=== PATIENT | male | born 1955 | race Caucasian/White ===

== ENCOUNTER 2017-06-10 20:30 | Emergency (ER) | payer MEDICAID, OTHER ==
[~2017-06-10] VITALS: Ht 167.6 cm; Wt 77.1 kg
[~2017-06-10 20:30] MED LIST: NKM; UNOBMED; no home meds
[2017-06-10 20:35] VITALS: BP 113/72
[2017-06-10] MEDS ORDERED: Thiamine HCl 100 MG in D5W 55 ML IVPB SCH (21:00)
--- NOTE | 2017-06-10 21:02 | Emergency Room Report ---
History of Present Illness General Chief Complaint: Alcohol Intoxication Source: Patient, EMS Present Illness HPI The patient is brought in for alcohol ingestion. He was brought in from the streets by EMS. He denies any pain, cough, nausea, vomiting, diarrhea, fever. He's not suicidal. He drinks daily. Denies seizures, DTs, ulcers, head trauma. Denies use of other drugs. In 2012 he was admitted with possible ischemic stroke (because he was still not ambulatory after 6 hours). MRI and CT showed L fronto-parietal encephalomalacia c/w prior stroke. He was discharged after swallow eval. The patient does not have weakness or numbness. A repeat CT 10/2015 showed the same area of encephalomalacia. Allergies: Coded Allergies: No Known Allergies (Unverified , 06/11/13) Patient History Past Medical History: see triage record, CVA/TIA - L frontoparietal Social History: Reports: alcohol use Social History Narrative from streets Reviewed Nursing Documentation: PMH: Agreed, PSxH: Agreed Nursing Documentation-PMH Past Medical History: No History, Except For Hx Neurological Problems: No Hx Seizures: Yes - ETOH Review of Systems All Other Systems: negative except mentioned in HPI Physical Exam Vital Signs Date Time Temp Pulse Resp B/P (MAP) Pulse Ox O2 Delivery O2 Flow Rate FiO2 06/10/17 20:30 97.5 89 14 113/72 98 Room Air Sp02 EP Interpretation: reviewed, normal General Appearance: other - dishevelled, alcohol on breath Head: normocephalic, atraumatic Eyes: bilateral eye PERRL, bilateral eye Scleral Injection ENT: moist mucus membranes Neck: supple Respiratory: lungs clear, normal breath sounds Cardiovascular #1: regular rate, rhythm Cardiovascular #2: 2+ radial (R) Gastrointestinal: normal inspection, normal bowel sounds, non tender, no mass, non-distended Musculoskeletal: back normal, gait/station normal, normal range of motion Neurologic: alert, oriented x3, motor strength/tone normal, DTRs symmetric, sensory intact, other - ataxia and slurred Psychiatric: no suicidal/homicidal ideation Skin: warm/dry, other - sun changes, dirt Medical Decision Making Diagnostic Impression: Primary Impression: Acute alcoholic intoxication Qualified Codes: F10.929 - Alcohol use, unspecified with intoxication, unspecified ER Course Patient presents with alcohol ingestion. Differential includes electrolyte abnormality, alcohol ingestion, depression, impending withdrawal. No evidence of head trauma and non-focal neurologic exam. No imaging indicated. No cough or dyspnea. Will run labs, tx with IV hydration and give dose of thiamine. Labs remarkable for elevated BA. Patient improved with observation. Ambulates with steady gait and denies SI. Patient stable for outpatient observation and treatment. Labs Test 06/10/17 21:45 White Blood Count 9.3 K/UL (4.8-10.8) Red Blood Count 4.47 M/UL (4.70-6.10) Hemoglobin 14.9 G/DL (14.2-18.0) Hematocrit 43.8 % (42.0-52.0) Mean Corpuscular Volume 98 FL (80-99) Mean Corpuscular Hemoglobin 33.3 PG (27.0-31.0) Mean Corpuscular Hemoglobin Concent 33.9 G/DL (32.0-36.0) Red Cell Distribution Width 12.6 % (11.6-14.8) Platelet Count 227 K/UL (150-450) Mean Platelet Volume 6.8 FL (6.5-10.1) Neutrophils (%) (Auto) 66.7 % (45.0-75.0) Lymphocytes (%) (Auto) 22.6 % (20.0-45.0) Monocytes (%) (Auto) 9.0 % (1.0-10.0) Eosinophils (%) (Auto) 1.2 % (0.0-3.0) Basophils (%) (Auto) 0.5 % (0.0-2.0) Sodium Level 149 mEQ/L (135-145) Potassium Level 4.0 mEQ/L (3.4-4.9) Chloride Level 110 mEQ/L (98-107) Carbon Dioxide Level 25 mEQ/L (20-30) Anion Gap 14 (5-15) Blood Urea Nitrogen 9 mg/dL (7-23) Creatinine 0.8 mg/dL (0.7-1.2) Estimat Glomerular Filtration Rate > 60 mL/min (>60) Glucose Level 92 mg/dL (74-106) Calcium Level 9.0 mg/dL (8.6-10.2) Total Bilirubin < 0.2 mg/dL (0.0-1.2) Aspartate Amino Transf (AST/SGOT) 38 U/L (5-40) Alanine Aminotransferase (ALT/SGPT) 23 U/L (3-41) Alkaline Phosphatase 61 U/L (40-129) Total Creatine Kinase 100 U/L (38-174) Total Protein 7.3 g/dL (6.6-8.7) Albumin 4.1 g/dL (3.5-5.2) Globulin 3.2 g/dL Albumin/Globulin Ratio 1.2 (1.0-2.7) Salicylates Level < 1 mg/dL (10-30) Acetaminophen Level < 10 ug/mL (10-30) Serum Alcohol 315 mg/dL EKG Diagnostic Results Rate: normal Rhythm: NSR ST Segments: no acute changes Rhythm Strip Diag. Results EP Interpretation: yes Rhythm: NSR, no PVC's, no ectopy Last Vital Signs Date Time Temp Pulse Resp B/P (MAP) Pulse Ox O2 Delivery O2 Flow Rate FiO2 06/11/17 06:32 98.0 91 19 139/81 95 Room Air Status: improved Disposition: HOME, SELF-CARE Condition: Improved Aleksandr Espinal M.D. Jun 10, 2017 21:02
[2017-06-10] MEDS ORDERED: Thiamine HCl 100mg/ml 2 ml Inj ONE (21:58)
[2017-06-10 22:35] VITALS: BP 128/80
[2017-06-10 22:39] LABS: BASOPHILS % (AUTO) 0.5 % (0.0-2.0); EOSINOPHILS % (AUTO) 1.2 % (0.0-3.0); LYMPHOCYTES % (AUTO) 22.6 % (20.0-45.0); MEAN CORPUSCULAR HEMOGLOBIN 33.3 PG (27.0-31.0); MEAN CORPUSCULAR HGB CONC 33.9 G/DL (32.0-36.0); MEAN CORPUSCULAR VOLUME 98 FL (80-99); MEAN PLATELET VOLUME 6.8 FL (6.5-10.1); NEUTROPHILS % (AUTO) 66.7 % (45.0-75.0); PLATELET COUNT 227 K/UL (150-450); RED BLOOD COUNT 4.47 M/UL (4.70-6.10); RED CELL DISTRIBUTION WIDTH 12.6 % (11.6-14.8); WHITE BLOOD COUNT 9.3 K/UL (4.8-10.8)
[2017-06-10 22:51] LABS: ACETAMINOPHEN < 10 ug/mL (10-30); ALANINE AMINOTRANSFERASE 23 U/L (3-41); ALBUMIN/GLOBULIN RATIO 1.2 (1.0-2.7); ALCOHOL 315 mg/dL; ANION GAP 14 (5-15); ASPARTATE AMINO TRANSFERASE 38 U/L (5-40); CARBON DIOXIDE 25 mEQ/L (20-30); CHLORIDE 110 mEQ/L (98-107); CREATININE 0.8 mg/dL (0.7-1.2); GLOMERULAR FILTRATION RATE > 60 mL/min (>60); HEMOLYSIS 8; SODIUM 149 mEQ/L (135-145); TOTAL PROTEIN 7.3 g/dL (6.6-8.7)
[2017-06-11 00:35] VITALS: BP 119/78
[2017-06-11 02:35] VITALS: BP 130/79
[2017-06-11 04:35] VITALS: BP 115/69
[2017-06-11 06:32] VITALS: BP 139/81
--- NOTE | 2017-06-11 14:42 | Cardiology Report ---
APPROVED REPORT EKG Measurement Heart [id number] Normal sinus rhythm Normal ECG
== END 2017-06-11 06:32 | disposition home or self-care (01) ==
LOC: EDBD 20:30 → EMR 21:06
DX: F10.929 Alcohol use, unspecified with intoxication, unspecified (principal); Z86.73 Personal history of transient ischemic attack (TIA), and cerebral infarction without residual deficits
CPT/HCPCS: 36415; 80053; 80329; 82550; 85025; 93005; 96361; 96374; 99284

== ENCOUNTER 2017-10-23 23:59 | Emergency (ER) | payer MEDICAID ==
[~2017-10-23] VITALS: Ht 188 cm; Wt 77.1 kg
[2017-10-24 00:04] VITALS: BP 127/73
--- NOTE | 2017-10-24 00:08 | Emergency Room Report ---
History of Present Illness General Chief Complaint: Abdominal Pain Source: Patient, Medical Record, EMS Present Illness HPI This is a 61-year-old alcoholic who been to multiple ER is in the past. He complaining of abdominal pain. He was just discharged from [facility]. He been here multiple time for the same thing. He says the same pain that has been ongoing for months. No vomiting. Pain is 8/10. No other complaint. Allergies: Coded Allergies: No Known Allergies (Unverified , 06/11/13) Patient History Past Medical History: see triage record, old chart reviewed Past Surgical History: other Pertinent Family History: none Social History: Reports: alcohol use Immunizations: other Reviewed Nursing Documentation: PMH: Agreed, PSxH: Agreed Nursing Documentation-PMH Past Medical History: No Stated History Hx Neurological Problems: No Hx Seizures: Yes - ETOH Review of Systems Eye: Denies: eye pain, blurred vision ENT: Denies: ear pain, nose congestion, throat swelling Respiratory: Denies: cough, shortness of breath Cardiovascular: Denies: chest pain, palpitations Gastrointestinal: Reports: abdominal pain, Denies: diarrhea, nausea, vomiting Musculoskeletal: Denies: back pain, joint pain Skin: Denies: rash Neurological: Denies: headache, numbness Endocrine: Denies: increased thirst, increased urine Hematologic/Lymphatic: Denies: easy bruising All Other Systems: negative except mentioned in HPI Physical Exam Vital Signs Date Time Temp Pulse Resp B/P (MAP) Pulse Ox O2 Delivery O2 Flow Rate FiO2 10/23/17 23:50 97.9 94 16 127/73 97 Room Air vitals normal Sp02 EP Interpretation: reviewed, normal General Appearance: well appearing, no apparent distress, alert, other - dishelved, malodorous Head: normocephalic, atraumatic Eyes: bilateral eye PERRL, bilateral eye EOMI ENT: hearing grossly normal, normal pharynx Neck: full range of motion, supple, no meningismus Respiratory: chest non-tender, lungs clear, normal breath sounds Cardiovascular #1: regular rate, rhythm, no murmur Gastrointestinal: normal bowel sounds, non tender, no mass, no organomegaly, no bruit, non-distended Musculoskeletal: back normal, gait/station normal, normal range of motion Psychiatric: mood/affect normal Skin: warm/dry Medical Decision Making Diagnostic Impression: Primary Impression: Acute alcoholic intoxication Qualified Codes: F10.929 - Alcohol use, unspecified with intoxication, unspecified Additional Impression: Abdominal pain of unknown etiology ER Course Patient said he has abdominal pain but no pain on palpation. No evidence of acute abdomen. We'll discharge him. Last Vital Signs Date Time Temp Pulse Resp B/P (MAP) Pulse Ox O2 Delivery O2 Flow Rate FiO2 10/24/17 00:04 97.9 94 16 127/73 97 Room Air Status: unchanged Disposition: HOME, SELF-CARE Condition: Stable Additional Instructions: Stop Drinking alcohol. Followup your Dr. in 7 days. Return if worse. JUANCHO KATE M.D. Oct 24, 2017 00:08
[2017-10-24 00:20] VITALS: BP 127/73
== END 2017-10-24 00:20 | disposition home or self-care (01) ==
LOC: EMR 23:59 → EDBD 23:59 → EMR 10-24 00:20
DX: F10.129 Alcohol abuse with intoxication, unspecified (principal); Z86.69 Personal history of other diseases of the nervous system and sense organs
CPT/HCPCS: 99282

== ENCOUNTER 2017-10-25 11:53 | Emergency (ER) | payer MEDICAID ==
[~2017-10-25] VITALS: Ht 172.7 cm; Wt 63.5 kg
[2017-10-25 11:59] VITALS: BP 104/60
[2017-10-25 12:32] LABS: BASOPHILS % (AUTO) 0.4 % (0.0-2.0); HEMATOCRIT 45.4 % (42.0-52.0); HEMOGLOBIN 14.6 G/DL (14.2-18.0); LYMPHOCYTES % (AUTO) 26.5 % (20.0-45.0); MEAN CORPUSCULAR VOLUME 96 FL (80-99); MONOCYTES % (AUTO) 8.6 % (1.0-10.0); NEUTROPHILS % (AUTO) 63.5 % (45.0-75.0); PLATELET COUNT 251 K/UL (150-450); RED BLOOD COUNT 4.74 M/UL (4.70-6.10); RED CELL DISTRIBUTION WIDTH 13.4 % (11.6-14.8); WHITE BLOOD COUNT 6.2 K/UL (4.8-10.8)
[2017-10-25 12:43] LABS: ANION GAP 12 mmol/L (5-15); BLOOD UREA NITROGEN 8 mg/dL (7-18); CALCIUM 8.7 MG/DL (8.5-10.1); CARBON DIOXIDE 24 MMOL/L (21-32); CHLORIDE 108 MMOL/L (98-107); CREATININE 0.7 MG/DL (0.55-1.30); POTASSIUM 3.6 MMOL/L (3.5-5.1); SODIUM 144 MMOL/L (136-145)
--- NOTE | 2017-10-25 14:37 | Emergency Room Report ---
History of Present Illness General Chief Complaint: Alcohol Intoxication Source: Patient, EMS Present Illness HPI Patient presents by paramedics Bystanders had contacted paramedics as the patient was sleeping on the sidewalk Upon arrival the patient requesting food However he does become somnolent and difficult to arouse Patient does admit to drinking alcohol earlier He appears poorly And disheveled Denied any chest pain denies any headache however the history of present illness remains somewhat limited as the patient would become somnolent and begins snoring Allergies: Coded Allergies: No Known Allergies (Unverified , 06/11/13) UNABLE TO ASSESS (Unverified , 10/25/17) Patient History Limited by: medical condition Past Medical History: see triage record Pertinent Family History: unable to obtain Reviewed Nursing Documentation: PMH: Agreed, PSxH: Agreed Nursing Documentation-PMH Hx Neurological Problems: No Hx Seizures: Yes - ETOH Review of Systems All Other Systems: limited - Other than the ones mentioned in the history of present illness all others are reviewed however they do stay limited due to the patient's mental status Physical Exam Vital Signs Date Time Temp Pulse Resp B/P (MAP) Pulse Ox O2 Delivery O2 Flow Rate FiO2 10/25/17 11:45 97.7 80 16 104/60 95 Room Air Sp02 EP Interpretation: reviewed, normal General Appearance: no apparent distress - Appears disheveled Head: normocephalic, atraumatic Eyes: bilateral eye PERRL, bilateral eye EOMI ENT: normal pharynx, no angioedema Neck: supple Respiratory: chest non-tender, lungs clear Cardiovascular #1: regular rate, rhythm Gastrointestinal: non tender, soft Musculoskeletal: other - Patient does not follow commands however no obvious focal deficit Neurologic: responsive - To verbal and physical stimuli however the patient has no follow commands, Skin: other - desheveled appearance Lymphatic: no adenopathy Medical Decision Making Diagnostic Impression: Primary Impression: Alcohol abuse ER Course Multiple differentials considered including but not limited to metabolic Alcohol pathology, infectious neurosurgical, intracranial Patient's alcohol level was elevated however the patient continues to be fairly somnolent and sleeping heavily therefore CT head was obtained and patient is pending further sobering Labs Test 10/25/17 12:20 White Blood Count 6.2 K/UL (4.8-10.8) Red Blood Count 4.74 M/UL (4.70-6.10) Hemoglobin 14.6 G/DL (14.2-18.0) Hematocrit 45.4 % (42.0-52.0) Mean Corpuscular Volume 96 FL (80-99) Mean Corpuscular Hemoglobin 30.8 PG (27.0-31.0) Mean Corpuscular Hemoglobin Concent 32.2 G/DL (32.0-36.0) Red Cell Distribution Width 13.4 % (11.6-14.8) Platelet Count 251 K/UL (150-450) Mean Platelet Volume 6.5 FL (6.5-10.1) Neutrophils (%) (Auto) 63.5 % (45.0-75.0) Lymphocytes (%) (Auto) 26.5 % (20.0-45.0) Monocytes (%) (Auto) 8.6 % (1.0-10.0) Eosinophils (%) (Auto) 1.0 % (0.0-3.0) Basophils (%) (Auto) 0.4 % (0.0-2.0) Sodium Level 144 MMOL/L (136-145) Potassium Level 3.6 MMOL/L (3.5-5.1) Chloride Level 108 MMOL/L (98-107) Carbon Dioxide Level 24 MMOL/L (21-32) Anion Gap 12 mmol/L (5-15) Blood Urea Nitrogen 8 mg/dL (7-18) Creatinine 0.7 MG/DL (0.55-1.30) Estimat Glomerular Filtration Rate > 60 mL/min (>60) Glucose Level 65 MG/DL (74-106) Calcium Level 8.7 MG/DL (8.5-10.1) Serum Alcohol 330 mg/dL Last Vital Signs Date Time Temp Pulse Resp B/P (MAP) Pulse Ox O2 Delivery O2 Flow Rate FiO2 10/25/17 11:59 97.7 80 16 104/60 95 Room Air Status: improved Signed Out To: oncoming physician Referrals: NOT CHOSEN IPA/,REFERRING (PCP) JOAQUIM ESQUEDA D.O. Oct 25, 2017 14:37
[2017-10-25 18:35] VITALS: BP 104/60
--- NOTE | 2017-10-25 21:37 | Emergency Room Report ---
Physical Exam Vital Signs Date Time Temp Pulse Resp B/P (MAP) Pulse Ox O2 Delivery O2 Flow Rate FiO2 10/25/17 11:45 97.7 80 16 104/60 95 Room Air Medical Decision Making Diagnostic Impression: Primary Impression: Alcohol abuse ER Course Hospital Course 61-year-old M presents to ED with altered mental status. Clinical course Patient initially seen and evaluated by Dr Lyon. Please see his note for full history and physical Labs reviewed-electrolytes okay, no leukocytosis, hemoglobin/hematocrit stable, ETOH > 300 CT brain shows no acute pathology patient allowed to sleep. now clinically sober. ambulating i. I feel this is a highly complex case requiring extensive working including EKG/Rhythm strip, Xray/CT/US, Blood/urine lab work, repeat exams while in ED, and administration of strong opiates/narcotics for pain control, admission to hospital or close patient follow up. Diagnosis -alcohol abuse Stable and discharged to home. Followup with PMD. Return to ED if symptoms recur or worsen Labs Test 10/25/17 12:20 White Blood Count 6.2 K/UL (4.8-10.8) Red Blood Count 4.74 M/UL (4.70-6.10) Hemoglobin 14.6 G/DL (14.2-18.0) Hematocrit 45.4 % (42.0-52.0) Mean Corpuscular Volume 96 FL (80-99) Mean Corpuscular Hemoglobin 30.8 PG (27.0-31.0) Mean Corpuscular Hemoglobin Concent 32.2 G/DL (32.0-36.0) Red Cell Distribution Width 13.4 % (11.6-14.8) Platelet Count 251 K/UL (150-450) Mean Platelet Volume 6.5 FL (6.5-10.1) Neutrophils (%) (Auto) 63.5 % (45.0-75.0) Lymphocytes (%) (Auto) 26.5 % (20.0-45.0) Monocytes (%) (Auto) 8.6 % (1.0-10.0) Eosinophils (%) (Auto) 1.0 % (0.0-3.0) Basophils (%) (Auto) 0.4 % (0.0-2.0) Sodium Level 144 MMOL/L (136-145) Potassium Level 3.6 MMOL/L (3.5-5.1) Chloride Level 108 MMOL/L (98-107) Carbon Dioxide Level 24 MMOL/L (21-32) Anion Gap 12 mmol/L (5-15) Blood Urea Nitrogen 8 mg/dL (7-18) Creatinine 0.7 MG/DL (0.55-1.30) Estimat Glomerular Filtration Rate > 60 mL/min (>60) Glucose Level 65 MG/DL (74-106) Calcium Level 8.7 MG/DL (8.5-10.1) Serum Alcohol 330 mg/dL CT/MRI/US Diagnostic Results CT/MRI/US Diagnostic Results : Imaging Test Ordered: CT Head Impression no acute process Last Vital Signs Date Time Temp Pulse Resp B/P (MAP) Pulse Ox O2 Delivery O2 Flow Rate FiO2 10/25/17 18:35 97.7 80 16 104/60 95 Room Air Status: improved Disposition: HOME, SELF-CARE Condition: Stable Referrals: NOT CHOSEN IPA/,REFERRING (PCP) Patient Instructions: Alcohol Intoxication JORDY HOOD M.D. Oct 25, 2017 21:37
--- NOTE | 2017-10-26 11:11 | Diagnostic Imaging Report ---
Indication: Altered mental status Technique: Continuous helical CT scanning of the head was performed utilizing automated exposure control without intravenous contrast material. Axial and coronal reconstructions were obtained. Comparison: 11/26/2015 CT dose: Total DLP 1439.42 mGycm; CTDI vol 70.38 mGy Findings: There is no acute intracranial hemorrhage, mass effect or cortical edema. Remote infarct in the left inferior frontal lobe unchanged. The ventricles, cisterns and sulci are prominent consistent with atrophy, again greater than expected for age. Periventricular hypoattenuation is seen, a nonspecific finding. No depressed skull fractures identified. Paranasal sinuses and mastoid air cells are clear. Imaged portions of the orbits grossly unremarkable. IMPRESSION: No evidence of acute intracranial hemorrhage, mass effect or midline shift. Remote infarct in the left frontal lobe. Acute on chronic ischemia cannot entirely be excluded. MRI may be obtained for more sensitive evaluation as clinically indicated. Atrophy and nonspecific periventricular hypoattenuation suggestive of chronic ischemic microvascular changes. This corresponds with the statrad preliminary report. The CT scanner at [facility] is accredited by the [employer] and the scans are performed using protocols designed to limit radiation exposure to as low as reasonably achievable to attain images of sufficient resolution adequate for diagnostic evaluation.
== END 2017-10-25 18:39 | disposition home or self-care (01) ==
LOC: EDBD 11:53 → EMR 11:59
DX: F10.10 Alcohol abuse, uncomplicated (principal); Y90.8 Blood alcohol level of 240 mg/100 ml or more; R41.82 Altered mental status, unspecified
CPT/HCPCS: 36415; 70450; 80048; 80329; 85025; 99284

== ENCOUNTER 2017-12-25 13:28 | Emergency (ER) | payer MEDICAID ==
[~2017-12-25] VITALS: Ht 185.4 cm; Wt 90.7 kg
[2017-12-25 13:29] VITALS: BP 119/73
[2017-12-25 17:54] VITALS: BP 103/66
--- NOTE | 2017-12-25 20:09 | Emergency Room Report ---
History of Present Illness General Chief Complaint: Alcohol Intoxication Source: EMS Present Illness HPI Pt. presents to the ED brought by EMS intoxicated with alcohol, pt. is NAD, pt. is alert, no obvious signs of trauma. Answering questions appropriately, no medical complaints at this time. HPI and ROS limited due to pt. being under the influence. Allergies: Coded Allergies: No Known Allergies (Unverified , 06/11/13) UNABLE TO ASSESS (Unverified , 10/25/17) Patient History Past Medical History: see triage record Past Surgical History: none Pertinent Family History: none Social History: Reports: alcohol use Reviewed Nursing Documentation: PMH: Agreed; PSxH: Agreed Nursing Documentation-PMH Past Medical History: No History, Except For History Of Psychiatric Problem: Yes - ALCOHOL ABUSE Hx Neurological Problems: No Hx Seizures: Yes - ETOH Review of Systems All Other Systems: limited Physical Exam Vital Signs Date Time Temp Pulse Resp B/P (MAP) Pulse Ox O2 Delivery O2 Flow Rate FiO2 12/25/17 13:24 97.0 83 20 119/73 98 Room Air 97.0 Sp02 EP Interpretation: reviewed, normal General Appearance: no apparent distress, alert, GCS 15, non-toxic Head: normocephalic, atraumatic Eyes: bilateral eye normal inspection, bilateral eye PERRL ENT: hearing grossly normal, normal voice Neck: full range of motion, no bony tend Respiratory: chest non-tender, lungs clear, normal breath sounds, no respiratory distress, no wheezing, speaking full sentences Cardiovascular #1: regular rate, rhythm, no edema, normal capillary refill Gastrointestinal: normal bowel sounds, non tender, soft Musculoskeletal: back normal, gait/station normal, normal range of motion, non- tender Neurologic: alert, oriented x3, responsive, motor strength/tone normal, sensory intact, other - slurred but appropriate speech. no signs of significant neurological deficit., grossly normal Psychiatric: judgement/insight normal Skin: normal color, no rash, warm/dry, well hydrated Medical Decision Making PA Attestation Dr. encarnacion is my supervising Physician whom patient management has been discussed with. Diagnostic Impression: Primary Impression: Acute alcoholic intoxication Qualified Codes: F10.929 - Alcohol use, unspecified with intoxication, unspecified ER Course Pt. presents to the ED brought by EMS intoxicated with alcohol, pt. is NAD, pt. is alert, no obvious signs of trauma. Answering questions appropriately, no medical complaints at this time. HPI and ROS limited due to pt. being under the influence. Ddx considered but are not limited to ETOH, Trauma, Syncope, dementia, OD Vital signs: are WNL, pt. is afebrile H&PE are most consistent with ETOH abuse. ORDERS: -Serum ETOH: 290 ED INTERVENTIONS: - Observance while he detoxifies. -Pt. given multiple sandwhiches. -Pt. was allowed to sleep/rest. -PT. is awake and alert x 3, ambulatory w. steady gait. - clinically sober DISCHARGE: At this time pt. is stable for d/c to home. Will provide printed patient care instructions, and any necessary prescriptions. Care plan and follow up instructions have been discussed with the patient prior to discharge. Last Vital Signs Date Time Temp Pulse Resp B/P (MAP) Pulse Ox O2 Delivery O2 Flow Rate FiO2 12/25/17 17:54 98.8 85 16 103/66 95 Room Air 98.8 Disposition: HOME, SELF-CARE Condition: Stable Referrals: NOT CHOSEN IPA/MD,REFERRING (PCP) Patient Instructions: Alcohol Abuse and Nutrition, Alcohol Intoxication, Easy- to-Read Additional Instructions: Take any previously prescribed medications as directed. --Review list of alcohol dependency help facilities and AA meetings. Follow up with a Primary Care Provider in 3-5 days, even if your symptoms have resolved. --Please review list of primary care clinics, if you do not already have a primary care provider Return sooner to ED if new symptoms occur, or current symptoms become worse. Do not drink alcohol - Please note that this Emergency Department Report was dictated using [employer] secretary technology software, occasionally this can lead to erroneous entry secondary to interpretation by the dictation equipment. Ju Gordon Dec 25, 2017 20:09
[2017-12-25 20:30] VITALS: BP 103/66
== END 2017-12-25 20:30 | disposition home or self-care (01) ==
LOC: EDBD 13:28 → EMR 14:05
DX: F10.129 Alcohol abuse with intoxication, unspecified (principal)
CPT/HCPCS: 36415; 80329; 99284

== ENCOUNTER 2017-12-30 18:49 | Emergency (ER) | payer MEDICAID ==
[~2017-12-30] VITALS: Ht 180.3 cm; Wt 83.9 kg
--- NOTE | 2017-12-30 19:17 | Emergency Room Report ---
History of Present Illness General Chief Complaint: Alcohol Intoxication Source: EMS (Ramiro Ricardo) Present Illness HPI 62 yo male patient presents to ER BIB s/p fall. Reports patient is drunk and was found on sidewalk. Fall not observed. Patient has history of multiple previous CTs of head; hx of "dents" in head per patient. Denies drug use. Denies chest pain, SOB, fever, BUITRAGO, vision changes. (Ramiro Ricardo) Allergies: Coded Allergies: No Known Allergies (Unverified , 06/11/13) UNABLE TO ASSESS (Unverified , 10/25/17) Patient History Past Medical History: see triage record Reviewed Nursing Documentation: PMH: Agreed; PSxH: Agreed (Ramiro Ricardo) Nursing Documentation-PMH Hx Diabetes: Yes Hx Neurological Problems: No Hx Seizures: Yes (Ramiro Ricardo) Review of Systems All Other Systems: negative except mentioned in HPI (Ramiro Ricardo) Physical Exam Vital Signs Date Time Temp Pulse Resp B/P (MAP) Pulse Ox O2 Delivery O2 Flow Rate FiO2 12/30/17 18:45 97.4 71 17 116/83 98 Room Air 97.3 Sp02 EP Interpretation: reviewed, normal General Appearance: well appearing, no apparent distress, alert, GCS 15, non- toxic, other - dirty clothes Head: normocephalic, atraumatic, other - negative Gregory sign, negative Raccoon eyes Eyes: bilateral eye normal inspection, bilateral eye PERRL ENT: hearing grossly normal, normal pharynx, no angioedema, normal voice, uvula midline, moist mucus membranes Neck: full range of motion Respiratory: lungs clear, normal breath sounds, no rhonchi, no respiratory distress, no accessory muscle use, no wheezing, speaking full sentences Cardiovascular #1: regular rate, rhythm, no edema Musculoskeletal: back normal, digits/nails normal, gait/station normal, normal range of motion, non-tender Neurologic: alert, oriented x3, responsive, motor strength/tone normal, sensory intact Psychiatric: mood/affect normal Skin: no rash (Ramiro Ricardo) Medical Decision Making PA Attestation Dr. Campbell is my supervising Physician whom patient management has been discussed with. (Ramiro Ricardo) Diagnostic Impression: Primary Impression: Acute alcoholic intoxication ER Course Pt presents to ED BIB ambulance for ETOH intoxication. DDX considered but are not limited to laceration, abrasion, contusion, cellulitis, ICH, skull fracture. Will no order CT at this time. Multiple CTs of patient in the past, last in September 2017, reviewed results. Low suspicion for fracture or acute ICH. VITAL SIGNS are WNL, patient is afebrile ED INTERVENTIONS: PE benign. No open wounds, no lacerations, negative Raccoon eyes, negative Rgegory sign. Patient able to answer questions without difficulty. Patient resting comfortably, in no acute distress, nontoxic appearing. Patient seen and evaluated by Dr. Campbell. Agrees to treatment and plan. Will allow patient Patient signed out to Dr. Michel. (Ramiro Ricardo) ER Course received signout from INDIRA Mckinley 62 yo M with alcohol intox slept comfortably thorugh the night now ambulatory clinicalyl sober dc home (Bandar Michel M.D.) Last Vital Signs Date Time Temp Pulse Resp B/P (MAP) Pulse Ox O2 Delivery O2 Flow Rate FiO2 12/30/17 18:45 97.4 71 17 116/83 98 Room Air 97.3 (Ramiro Ricardo) Disposition: HOME, SELF-CARE Condition: Improved Ramiro Ricardo Dec 30, 2017 19:17 Bandar Michel M.D. Dec 31, 2017 02:42
[2017-12-30 19:30] VITALS: BP 116/83
[2017-12-30 21:30] VITALS: BP 117/80
[2017-12-30 23:30] VITALS: BP 121/84
[2017-12-31 01:30] VITALS: BP 126/84
[2017-12-31 03:30] VITALS: BP 123/81
[2017-12-31 05:30] VITALS: BP 126/81
[2017-12-31 06:10] VITALS: BP 126/81
== END 2017-12-31 06:10 | disposition home or self-care (01) ==
LOC: EDBD 18:49 → EMR 21:07
DX: F10.129 Alcohol abuse with intoxication, unspecified (principal); E11.9 Type 2 diabetes mellitus without complications; Z86.69 Personal history of other diseases of the nervous system and sense organs
CPT/HCPCS: 99283

== ENCOUNTER 2017-12-31 19:18 | Emergency (ER) | payer MEDICAID ==
[~2017-12-31] VITALS: Ht 175.3 cm; Wt 74.8 kg
--- NOTE | 2017-12-31 21:08 | Emergency Room Report ---
History of Present Illness General Chief Complaint: Alcohol Intoxication Source: Patient, Medical Record, EMS Present Illness HPI Patient presents with paramedics They report patient was intoxicated and sleeping on the ground Upon arrival the patient is awake and alert Requesting to be fed Denies any headache or visual changes Denies any chest pain or short of breath patient does report that he is homeless Allergies: Coded Allergies: No Known Allergies (Unverified , 06/11/13) UNABLE TO ASSESS (Unverified , 10/25/17) Patient History Past Medical History: see triage record Pertinent Family History: none Reviewed Nursing Documentation: PMH: Agreed; PSxH: Agreed Nursing Documentation-PMH Hx Diabetes: Yes - DM II Hx Neurological Problems: No Hx Seizures: Yes Review of Systems All Other Systems: negative except mentioned in HPI Physical Exam Vital Signs Date Time Temp Pulse Resp B/P (MAP) Pulse Ox O2 Delivery O2 Flow Rate FiO2 12/31/17 19:19 98.5 100 18 119/89 99 Room Air 98.4 Sp02 EP Interpretation: reviewed, normal General Appearance: no apparent distress - However the patient does appear disheveled Head: normocephalic, atraumatic Eyes: bilateral eye PERRL, bilateral eye EOMI ENT: normal pharynx, no angioedema Neck: supple Respiratory: lungs clear, normal breath sounds Cardiovascular #1: regular rate, rhythm, no edema Gastrointestinal: non tender, soft, no mass Musculoskeletal: normal inspection Neurologic: alert, oriented x3, responsive Skin: other - Patient appears disheveled, no obvious focal weakness Lymphatic: no adenopathy Medical Decision Making Diagnostic Impression: Primary Impression: Alcohol abuse ER Course Patient presents by paramedics At this time patient has had several visits to the emergency room recently No obvious focal deficit patient does not have any other complaints Patient requesting to be fed He was fed At this time is pending further sobering and disposition Last Vital Signs Date Time Temp Pulse Resp B/P (MAP) Pulse Ox O2 Delivery O2 Flow Rate FiO2 12/31/17 19:19 98.5 100 18 119/89 99 Room Air 98.4 Status: improved Disposition: HOME, SELF-CARE Condition: Improved Referrals: NOT CHOSEN IPA/,REFERRING (PCP) Juan Carlos Lyon DO Dec 31, 2017 21:08
[2018-01-01 01:39] VITALS: BP 104/57
[2018-01-01 05:44] VITALS: BP 110/61
== END 2018-01-01 05:45 | disposition home or self-care (01) ==
LOC: EDBD 19:18 → EMR 19:46
DX: F10.10 Alcohol abuse, uncomplicated (principal); E11.9 Type 2 diabetes mellitus without complications
CPT/HCPCS: 99282

== ENCOUNTER 2018-01-01 21:21 | Emergency (ER) | payer MEDICAID ==
[~2018-01-01] VITALS: Ht 185.4 cm; Wt 90.7 kg
[2018-01-01 21:40] VITALS: BP 113/80
--- NOTE | 2018-01-01 21:44 | Emergency Room Report ---
History of Present Illness General Chief Complaint: Alcohol Intoxication Source: Patient Present Illness HPI 62-year-old male, multiple visits to the ER for alcoholic intoxication, presenting with alcohol intoxication. He is currently ANO 4 however intoxicated. Keeps asking for a sandwich. Denies any trauma Allergies: Coded Allergies: No Known Allergies (Unverified , 06/11/13) UNABLE TO ASSESS (Unverified , 10/25/17) Patient History Past Medical History: see triage record Past Surgical History: none Pertinent Family History: none Reviewed Nursing Documentation: PMH: Agreed; PSxH: Agreed Nursing Documentation-PMH Hx Diabetes: Yes - DM II History Of Psychiatric Problem: Yes - alcohol abuse Hx Neurological Problems: No Hx Seizures: Yes Review of Systems All Other Systems: negative except mentioned in HPI Physical Exam Vital Signs Date Time Temp Pulse Resp B/P (MAP) Pulse Ox O2 Delivery O2 Flow Rate FiO2 01/01/18 21:14 98.8 77 18 113/80 98 Room Air 98.8 Sp02 EP Interpretation: reviewed, normal General Appearance: other - Very disheveled middle-aged intoxicated male, however answering questions appropriate Head: normocephalic, atraumatic Eyes: bilateral eye normal inspection, bilateral eye PERRL, bilateral eye EOMI ENT: normal ENT inspection, normal pharynx, normal voice, moist mucus membranes Neck: normal inspection, full range of motion, supple Respiratory: normal inspection, lungs clear, normal breath sounds, no respiratory distress, no retraction, no wheezing, speaking full sentences, chest symmetrical Cardiovascular #1: normal inspection, regular rate, rhythm, no edema, normal capillary refill Cardiovascular #2: 2+ radial (R), 2+ radial (L) Gastrointestinal: normal inspection, non tender, soft, non-distended, no guarding Genitourinary: no CVA tenderness Musculoskeletal: normal inspection, back normal, normal range of motion, non- tender Neurologic: normal inspection, alert, oriented x3, responsive, motor strength/ tone normal, sensory intact, normal gait, speech normal Psychiatric: normal inspection, judgement/insight normal, memory normal Skin: normal inspection, normal color, no rash, warm/dry, well hydrated, normal turgor Medical Decision Making Diagnostic Impression: Primary Impression: Acute alcoholic intoxication Additional Impression: Alcohol abuse ER Course 62-year-old male with alcohol intoxication DDX: Likely alcohol intoxication No signs of trauma Plan: pending sobriety ER course: Patient has remained stable during ED stay. now sober Disposition: Patient is to be discharged to home. Patient is instructed to follow up with their primary care doctor within 5 days. Please note that this Emergency Department Report was dictated using [employer] technology software, occasionally this can lead to erroneous entry secondary to interpretation by the dictation equipment Last Vital Signs Date Time Temp Pulse Resp B/P (MAP) Pulse Ox O2 Delivery O2 Flow Rate FiO2 01/01/18 21:14 98.8 77 18 113/80 98 Room Air 98.8 Disposition: HOME, SELF-CARE Condition: Improved Bandar Michel M.D. Jan 01, 2018 21:44
[2018-01-02 01:40] VITALS: BP 140/83
[2018-01-02 05:00] VITALS: BP 144/81
[2018-01-02 05:05] VITALS: BP 144/81
== END 2018-01-02 05:05 | disposition home or self-care (01) ==
LOC: EDBD 21:21 → EMR 21:31
DX: F10.129 Alcohol abuse with intoxication, unspecified (principal); E11.9 Type 2 diabetes mellitus without complications
CPT/HCPCS: 99284

== ENCOUNTER 2018-01-26 23:20 | Emergency (ER) | payer MEDICAID ==
[~2018-01-26] VITALS: Ht 182.9 cm; Wt 68.0 kg
--- NOTE | 2018-01-26 23:28 | Emergency Room Report ---
History of Present Illness General Source: Patient, Medical Record, EMS Present Illness HPI This is a 62-year-old male who was well-known here. He's been here numerous times. He is an alcoholic and he called 911 for headache and head injury. He said he fell and hour ago. He has pain to the back of his head. Been drinking tonight. No nausea no vomiting. No fever or chills. Pain is 8 out of 10. No focal deficit. Allergies: Coded Allergies: No Known Allergies (Unverified , 06/11/13) UNABLE TO ASSESS (Unverified , 10/25/17) Patient History Past Medical History: see triage record, old chart reviewed Past Surgical History: other Pertinent Family History: none Social History: Reports: alcohol use Reviewed Nursing Documentation: PMH: Agreed; PSxH: Agreed Nursing Documentation-PMH Hx Diabetes: Yes - DM II Hx Neurological Problems: No Hx Seizures: Yes Review of Systems Eye: Denies: eye pain, blurred vision ENT: Denies: ear pain, nose congestion, throat swelling Respiratory: Denies: cough, shortness of breath Cardiovascular: Denies: chest pain, palpitations Gastrointestinal: Denies: abdominal pain, diarrhea, nausea, vomiting Musculoskeletal: Denies: back pain, joint pain Skin: Denies: rash Neurological: Reports: headache; Denies: numbness Endocrine: Denies: increased thirst, increased urine Hematologic/Lymphatic: Denies: easy bruising All Other Systems: negative except mentioned in HPI Physical Exam vital signs unremarkable Sp02 EP Interpretation: reviewed, normal General Appearance: well appearing, no apparent distress, alert, other - intoxicated Head: normocephalic, atraumatic - I see no trauma to the back of his head. Eyes: bilateral eye PERRL, bilateral eye EOMI ENT: hearing grossly normal, normal pharynx Neck: full range of motion, supple, no meningismus Respiratory: chest non-tender, lungs clear, normal breath sounds Cardiovascular #1: regular rate, rhythm, no murmur Gastrointestinal: normal bowel sounds, non tender, no mass, no organomegaly, no bruit, non-distended Musculoskeletal: back normal, gait/station normal, normal range of motion Psychiatric: mood/affect normal Skin: warm/dry Medical Decision Making Diagnostic Impression: Primary Impression: Acute alcoholic intoxication Qualified Codes: F10.929 - Alcohol use, unspecified with intoxication, unspecified Additional Impression: Head injury, acute Qualified Codes: S09.90XA - Unspecified injury of head, initial encounter ER Course patient presents with head injury from a fall. Probably due to his alcohol abuse. I see no trauma. CT scan unremarkable. We'll discharge home when he is more clinically sober. CT/MRI/US Diagnostic Results CT/MRI/US Diagnostic Results : Imaging Test Ordered: CT head Impression negative per radiologist for bleed or skull frx. Status: improved Disposition: HOME, SELF-CARE Condition: Stable Additional Instructions: Follow-up with your Dr. in 7 days. Abstain from alcohol. Return if worse. JUANCHO KATE M.D. Jan 26, 2018 23:28
[2018-01-26 23:40] VITALS: BP 130/88
[2018-01-27 02:05] VITALS: BP 128/86
[2018-01-27 04:10] VITALS: BP 116/87
[2018-01-27 05:30] VITALS: BP 130/84
[2018-01-27 05:40] VITALS: BP 130/84
--- NOTE | 2018-01-27 08:59 | Diagnostic Imaging Report ---
Indication: Headache. Head trauma Technique: Contiguous 5 mm thick transaxial imaging of the head obtained in a Siemens Sensation [address] scanner. Soft tissue and bone windows generated. Automatic Exposure Control was utilized. Total Dose length Product (DLP): 1432.[address] Dose Index Volume (CTDIvol): 70.38 mGy Comparison: 10/25/2017 Findings: There is moderate prominence of the ventricles, basal cisterns, and cerebral sulci consistent with atrophy. Moderate, nonspecific, white matter hypoattenuation is noted throughout the brain consistent with chronic small vessel disease. There is encephalomalacia in the left frontal lobe. There is no midline shift, edema, acute hemorrhage, mass effect, or abnormal extra-axial fluid collections. There is acute nasal fracture noted on the right. Impression: No acute intracranial bleed, mass effect or edema. 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 Acute nasal fracture Moderate atrophy of the brain. Evidence of chronic small vessel disease involving white matter tracts. [facility] has communicated the preliminary results to the Emergency Department. Their findings are largely concordant with this report. The CT scanner at [facility] is accredited by the [employer] and the scans are performed using dose optimization techniques as appropriate to a performed exam including Automatic Exposure control.
== END 2018-01-27 05:40 | disposition home or self-care (01) ==
LOC: EDUNIT# 23:20 → EDBD 23:20 → EMR 23:30
DX: F10.129 Alcohol abuse with intoxication, unspecified (principal); S09.8XXA Other specified injuries of head, initial encounter; W19.XXXA Unspecified fall, initial encounter; Y92.9 Unspecified place or not applicable; R51 Headache; E11.9 Type 2 diabetes mellitus without complications
CPT/HCPCS: 70450; 99284

== ENCOUNTER 2018-01-27 11:39 | Emergency (ER) | payer MEDICAID ==
[~2018-01-27] VITALS: Ht 182.9 cm; Wt 95.3 kg
[2018-01-27 11:50] VITALS: BP 111/76
--- NOTE | 2018-01-27 12:19 | Emergency Room Report ---
History of Present Illness General Chief Complaint: Alcohol Intoxication Source: EMS Present Illness HPI 62 YO Male presents to the ED intoxicated with alcohol, pt. is NAD, pt. is alert, no obvious signs of trauma. This patient makes regular ED visits for alcohol intoxication well known by emergency department providers. History of alcoholism, not interested in detox or help quitting. pt. reports he is hungry. Denies pain, CP, dizziness or abdominal pain. denies open wounds. Allergies: Coded Allergies: No Known Allergies (Unverified , 06/11/13) Patient History Past Medical History: see triage record Past Surgical History: none Pertinent Family History: none Reviewed Nursing Documentation: PMH: Agreed; PSxH: Agreed Nursing Documentation-PMH Past Medical History: No History, Except For Hx Diabetes: Yes - DM II History Of Psychiatric Problem: No - ETOH Hx Neurological Problems: No Hx Seizures: Yes Review of Systems All Other Systems: negative except mentioned in HPI Physical Exam Vital Signs Date Time Temp Pulse Resp B/P (MAP) Pulse Ox O2 Delivery O2 Flow Rate FiO2 01/27/18 11:38 98.3 72 16 111/76 100 Room Air 98.2 General Appearance: no apparent distress, GCS 15, non-toxic Eyes: bilateral eye normal inspection, bilateral eye PERRL ENT: normal ENT inspection, hearing grossly normal, nasal congestion - moderate rhinorrhea in the left nostril- non purulent, other - pt. has poor dentition, missing multiple teeth, and malodorus breath Neck: full range of motion, no bony tend Respiratory: chest non-tender, lungs clear, normal breath sounds, no rhonchi, no respiratory distress, no wheezing Cardiovascular #1: regular rate, rhythm, no edema, normal capillary refill Gastrointestinal: non tender, soft, non-distended, no guarding Rectal: deferred Genitourinary: deferred Musculoskeletal: back normal, non-tender Neurologic: alert, oriented x3, responsive, other - No nystagmus bilaterallly Skin: normal color, no rash, other - gross contamination with dirt. no bleeding , no open wounds Medical Decision Making PA Attestation Dr. Michel is my supervising Physician whom patient management has been discussed with. Diagnostic Impression: Primary Impression: Acute alcoholic intoxication Qualified Codes: F10.929 - Alcohol use, unspecified with intoxication, unspecified ER Course 62 YO Male presents to the ED intoxicated with alcohol, pt. is NAD, pt. is alert, no obvious signs of trauma. This patient makes regular ED visits for alcohol intoxication well known by emergency department providers. History of alcoholism, not interested in detox or help quitting. pt. reports he is hungry. Denies pain, CP, dizziness or abdominal pain. denies open wounds. Ddx considered but are not limited to ETOH, Trauma, Syncope, dementia, OD Vital signs: are WNL, pt. is afebrile H&PE are most consistent with ETOH abuse. ORDERS: none required at this time ED INTERVENTIONS: Observance while he detoxifies. Pt. was allowed to sleep/ rest. PT. became awake and alert x 3 - Pt. given multiples sandwiches and juices during ED visit. DISCHARGE: At this time pt. is stable for d/c to home. Will provide printed patient care instructions, and any necessary prescriptions. Care plan and follow up instructions have been discussed with the patient prior to discharge. Last Vital Signs Date Time Temp Pulse Resp B/P (MAP) Pulse Ox O2 Delivery O2 Flow Rate FiO2 01/27/18 11:50 98.1 72 20 111/76 98 Room Air 98.1 Disposition: HOME, SELF-CARE Condition: Stable Patient Instructions: Alcohol Intoxication, [id number] Additional Instructions: Stop excessively drinking alcohol. Take previously prescribed medications as directed. Follow up with a Primary Care Provider in 3-5 days, even if your symptoms have resolved. --Please review list of primary care clinics, if you do not already have a primary care provider Return sooner to ED if new symptoms occur, or current symptoms become worse. - Please note that this Emergency Department Report was dictated using [employer] technology software, occasionally this can lead to erroneous entry secondary to interpretation by the dictation equipment. Ju Gordon January 27, 2018 12:19
[2018-01-27 16:00] VITALS: BP 108/72
[2018-01-27 17:46] VITALS: BP 108/72
== END 2018-01-27 17:49 | disposition home or self-care (01) ==
LOC: EDBD 11:39 → EMR 12:38
DX: F10.129 Alcohol abuse with intoxication, unspecified (principal)
CPT/HCPCS: 99283